=== PATIENT | female | born 1945 | race Caucasian/White ===

== ENCOUNTER 2019-10-26 03:06 | Emergency (ER) | payer MEDICARE, OTHER ==
[~2019-10-26] VITALS: Ht 149.9 cm; Wt 60.6 kg
[~2019-10-26 03:06] MED LIST: ASCO500T8 PO; ASPI-647 PO; BETA CAROTENE PO; CHOL10003 PO; CHROMIUM PO; CITA10TA4 PO; GARL10002 PO; LEVO50TA5 PO; LINA145C PO; METF500T17 PO; MULT-658 PO; OXYC5CAP2 PO; ROSU5TAB PO; TRIA1CAP3 PO; VITA100C8 PO; VITAMIN A PO; VITAMIN B12 PO
[2019-10-26] MEDS ORDERED: DIAZEPAM 5 MG TABLET PO ONE (03:30)
[2019-10-26] MEDS ORDERED: KETOROLAC 30 MG/1 ML IM ONE (03:30)
[2019-10-26] MEDS ORDERED: KETOROLAC 60 MG/2 ML ONE (03:39)
[2019-10-26] MEDS ORDERED: DIAZEPAM 5 MG TABLET ONE (03:39)
--- NOTE | 2019-10-26 03:46 | NUR ---
UNDRESSED PT, NAD, RR EQUAL AND UNLABORED. VSS. CALL STEELE IN REACH, BED POSITION IN LOW, SIDE RAILS UP. AIDET PROVIDED. 0347: PT TO XRAY VIA [facility].
--- NOTE | 2019-10-26 03:49 | NUR ---
BACK FROM XRAY.
--- NOTE | 2019-10-26 04:01 | NUR ---
REPORTS DECREASE IN PAIN TO 7/10. WILL CONTINUE TO MONITOR. AIDET PROVIDED.
--- NOTE | 2019-10-26 04:43 | NUR ---
PT REPORTS "IT FEELS A LOT BETTER" ABLE TO STAND AND TAKE STEPS REPORTS DECREASE TO 08/18. AWAITING DISPO/RE-EVAL. AIDET PROVIDED.
[2019-10-26 05:08] VITALS: BP 110/71
== END 2019-10-26 05:18 | disposition home or self-care (01) ==
LOC: ED 04:05
DX: S76.012A Strain of muscle, fascia and tendon of left hip, initial encounter (principal); M62.838 Other muscle spasm; E11.9 Type 2 diabetes mellitus without complications; X58.XXXA Exposure to other specified factors, initial encounter; Y93.89 Activity, other specified; Y92.69 Other specified industrial and construction area as the place of occurrence of the external cause; Y99.0 Civilian activity done for income or pay
CPT/HCPCS: 73502; 96372; 99283; J1885